=== PATIENT | female | born 1945 | race Two or more races ===

== ENCOUNTER → 2024-03-11 10:07 | Outpatient (CLI) | payer OTHER ==
[2024-03-11 12:16] LABS: ALBUMIN 3.7 gm/dL (3.4-5.0); BILIRUBIN TOTAL 0.5 mg/dL (0.3-1.2); CALCIUM 9.4 mg/dL (8.5-10.1); CREATININE SERUM 0.61 mg/dL (0.55-1.02); GFR 95.36; GLOBULINA 2.6 G/DL (2.4-3.5); POTASSIUM 3.96 mEq/L (3.5-5.1); T4 FREE 1.01 NG/ML (0.76-1.46); TOTAL PROTEIN 6.3 gm/dL (6.4-8.2); TSH 1.73 uIU/mL (0.358-3.74)
== END | disposition home or self-care (01) ==
LOC: LAB 10:07
DX: I10 Essential (primary) hypertension (principal); E03.8 Other specified hypothyroidism; C73 Malignant neoplasm of thyroid gland; E55.9 Vitamin D deficiency, unspecified

== ENCOUNTER 2024-03-14 06:00 | Outpatient (CLI) | payer OTHER | END 2024-03-14 06:01 | disposition home or self-care (01) | LOC: EKG 06:00 → SURH 03-15 07:00 → EDSTATUS 03-15 10:15 → SURH 03-15 10:15 | PROVIDERS: ATTEND Surgery | DX: C73 Malignant neoplasm of thyroid gland (principal); Z13.83 Encounter for screening for respiratory disorder NEC; E05.00 Thyrotoxicosis with diffuse goiter without thyrotoxic crisis or storm; Z13.6 Encounter for screening for cardiovascular disorders; I10 Essential (primary) hypertension ==

== ENCOUNTER 2024-04-11 08:15 | Inpatient (IN) | payer OTHER ==
[~2024-04-11] VITALS: Ht 154.9 cm; Wt 67.1 kg
[2024-04-11 09:49] LABS: HEMATOCRIT 40.3 % (36.0-45.00); HEMOGLOBIN 13.7 g/dL (12.0-15.00); MEAN CELL VOLUME 90.9 fL (80.00-100.00); MEAN CORPUSCULAR HEMOGLOBIN 30.8 pg (27.00-32.0); MEAN CORPUSCULAR HGB CONC 33.9 g/dl (32.0-36.0); PLATELET COUNT 319 K/uL (150-450); RED BLOOD COUNT 4.43 M/uL (4.00-6.00); RED CELL DISTRIBUTION WIDTH 13.7 % (11.5-14.5)
[2024-04-11 09:52] LABS: PH,URINE 6.5 (5.0-8.0); URINE APPEARANCE Clear; URINE BILIRRUBIN Negative (NEGATIVE); URINE BLOOD Negative; URINE COLOR Yellow; URINE GLUCOSE Negative (NEGATIVE); URINE KETONE Negative (NEGATIVE); URINE LEUKOCYTE Small; URINE NITRATE Negative; URINE PROTEIN Negative (NEGATIVE); URINE UROBILINOGEN 0.2 E.U./dl
[2024-04-11] MEDS ORDERED: INDAPAMIDE1.25 MG PO (09:53)
[2024-04-11] MEDS ORDERED: ZOLOFT100 MG (09:54)
[2024-04-11] MEDS ORDERED: AZOR 5-20 MG T1 EACH PO (09:55)
[2024-04-11] MEDS ORDERED: GLUMETZA500 MG PO (09:55)
[2024-04-11 09:56] VITALS: BP 157/84
[2024-04-11] MEDS ORDERED: LIPITOR80 MG PO (09:56)
[2024-04-11 09:57] LABS: URINE BACTERIA 461.4 uL (0.0-1933); URINE RBC 20.4 uL (0.0-20.8); URINE WBC 14.5 uL (0.0-23.2)
[2024-04-11 10:02] LABS: URINE CAST 0.14 uL (0.0-1.40)
[2024-04-11 10:15] LABS: INR 0.94; PROTHROMBIN TIME 10.3 SECONDS (9.0-11.5)
[2024-04-11 11:09] LABS: ALBUMIN 3.7 gm/dL (3.4-5.0); BILIRUBIN TOTAL 0.5 mg/dL (0.3-1.2); CALCIUM 9.5 mg/dL (8.5-10.1); CREATININE SERUM 0.55 mg/dL (0.55-1.02); GFR 107.46; GLOBULINA 2.7 G/DL (2.4-3.5); POTASSIUM 3.98 mEq/L (3.5-5.1); TOTAL PROTEIN 6.4 gm/dL (6.4-8.2)
[2024-04-18] MEDS ORDERED: CEFAZOLIN SODIUM 1,000 MG VIAL IV ONE (13:45)
[2024-04-18] MEDS ORDERED: DEXAMETHASONE SODIUM PHOSPHATE 4 MG/ML VIAL IV ONE (13:45)
[2024-04-18] MEDS ORDERED: RINGERS SOLUTION,LACTATED 1,000 ML IV SCH (16:00)
[2024-04-18] MEDS ORDERED: ONDANSETRON HCL 2 MG/ML VIAL IV PRN ×2 (16:00)
[2024-04-18] MEDS ORDERED: ENALAPRILAT DIHYDRATE 1.25 MG/ML VIAL IV PRN (16:00)
[2024-04-18] MEDS ORDERED: SODIUM CHLORIDE 0.45 % 1,000 ML IV SCH (16:00)
[2024-04-18] MEDS ORDERED: MORPHINE SULFATE 4 MG/ML VIAL IV ONE ×2 (16:45→19:45)
[2024-04-18] MEDS ORDERED: MORPHINE SULFATE 4 MG/ML VIAL IV SCH (17:00)
[2024-04-18] MEDS ORDERED: Calcium Carbonate 1 TAB TABLET PO SCH ×3 (17:00→21:00)
[2024-04-18] MEDS ORDERED: TRAMADOL HCL 50 MG TABLET PO SCH (17:00)
[2024-04-18] MEDS ORDERED: CYCLOBENZAPRINE HCL 5 MG TABLET PO SCH (17:00)
[2024-04-18] MEDS ORDERED: ACETAMINOPHEN 500 MG GEL..CAP PO SCH (17:00)
[2024-04-18 20:13] VITALS: BP 113/66; O2SAT 90
[2024-04-18] MEDS ORDERED: PANTOPRAZOLE SODIUM 40 MG/VIAL VIAL IV PUSH SCH ×2 (21:00)
[2024-04-18] MEDS ORDERED: CALCITRIOL 0.5 MCG CAPSULE PO SCH (21:15)
[2024-04-18 21:41] VITALS: O2SAT 93
[2024-04-18 22:39] LABS: ABG PH 7.389 (7.35-7.45); ABG PO2 82.3 mmHg (80-100); ABG pCO2 48.9 mmHg (35-45); BICARBONATE 28.9 mmol/l (23-25); Tco2 30.4 mmol/l
[2024-04-18 22:44] LABS: allen test SATISFACTORY; o2 40 %; puncture site RADIAL RIGHT
[2024-04-19 00:30] VITALS: BP 136/79; O2SAT 99
[2024-04-19] MEDS ORDERED: LEVOTHYROXINE SODIUM 100 MCG TABLET PO SCH (06:00)
[2024-04-19] MEDS ORDERED: AMLODIPINE BESYLATE 5 MG TABLET PO SCH (09:00)
[2024-04-19] MEDS ORDERED: INDAPAMIDE 1.25 MG TABLET PO SCH (09:00)
[2024-04-19] MEDS ORDERED: SERTRALINE HCL 50 MG TABLET PO SCH (09:00)
[2024-04-19] MEDS ORDERED: ATORVASTATIN CALCIUM 40 MG TABLET PO SCH (09:00)
[2024-04-19 09:09] VITALS: BP 144/73; O2SAT 97
== END 2024-04-19 14:46 | disposition home or self-care (01) | DRG 627 ==
LOC: SURH 04-18 07:00 → O/R 04-18 08:15 → SURH 04-18 16:21
PROVIDERS: Internal Medicine; ADMIT Surgery; ATTEND Surgery
PROC: 0GTG0ZZ Resection of Left Thyroid Gland Lobe, Open Approach (ICD-10-PCS; principal; 2024-04-18 07:00)
DX: C73 Malignant neoplasm of thyroid gland (principal); E04.1 Nontoxic single thyroid nodule